=== PATIENT | female | born 1960 | race Caucasian/White ===

== ENCOUNTER 2017-05-17 09:27 | Observation (INO) | payer BC ==
[~2017-05-17] VITALS: Ht 152.4 cm; Wt 87.8 kg
[2017-05-17 10:20] LABS: HEMATOCRIT 44.6 % (36.0-46.0); MCH 29.2 PG (29.0-34.0); MCHC 32.5 G/DL (30.0-36.0); MCV 89.9 FL (83-99); MEAN PLAT.VOLUME 8.9 uM^3 (9.5-12.4); PLATELET COUNT 370 K/uL (156-360); RBC DIS.WIDTH-CV 13.1 % (11.8-14.6); RBC DIS.WIDTH-SD 42.9 % (39-53); RED BLOOD COUNT 4.96 M/uL (3.80-5.20); WHITE BLOOD COUNT 8.7 K/uL (4.1-10.2)
[2017-05-17 10:28] LABS: POINT-OF-CARE METER ID UU13113747
[2017-05-17 10:34] LABS: CHLORIDE 105 mEq/L (99-109); INTER. NORMALIZED RATIO 0.9; POTASSIUM 4.6 mEq/L (3.7-5.4); PROTHROMBIN TIME 10.2 SEC (10.2-12.9); SODIUM 139 mEq/L (136-147)
[2017-05-17 10:35] LABS: GLUCOSE 125 mg/dL (70-99)
[2017-05-17 10:36] LABS: PTT 29.6 SEC (25-37)
[2017-05-17 10:37] LABS: ANION GAP 13 MEQ/L (2-14)
[2017-05-17 10:39] LABS: GFR ESTIMATE (CALCULATED) > 59 mL/min/
[2017-05-17 10:40] LABS: TROP-I INTERPRETATION NEGATIVE; TROPONIN-I < 0.01 ng/mL (0.0-0.30); UREA NITROGEN (BUN) 14 mg/dL (9-23)
[2017-05-17 13:06] VITALS: BP 138/89
[2017-05-17 16:32] LABS: TROP-I INTERPRETATION NEGATIVE; TROPONIN-I < 0.01 ng/mL (0.0-0.30)
[2017-05-17 20:00] VITALS: BP 147/77
[2017-05-17 22:11] LABS: TROP-I INTERPRETATION NEGATIVE; TROPONIN-I 0.03 ng/mL (0.0-0.30)
[2017-05-17 23:17] VITALS: BP 118/68
[2017-05-18 04:24] VITALS: BP 111/62
[2017-05-18 05:56] LABS: HDL CHOLESTEROL 53 MG/DL (Desirable>=50); LDL CHOLESTEROL 120 mg/dL (Desirable<100); NON-HDL CHOLESTEROL 176 mg/dL (Desirable<160); TOTAL CHOLESTEROL 229 mg/dL (Desirable<200); TRIGLYCERIDES 282 MG/DL (Normal: <150)
[2017-05-18 06:22] LABS: Estimated Average Glucose 120 mg/dL (70-123); HEMOGLOBIN A1c (GLYCOHEMOGLOB) 5.8 % HGB (Below 5.7)
[2017-05-18 07:50] VITALS: BP 129/69
[2017-05-18] MEDS ORDERED: ASPIR-LOW81 MG PO (10:33)
== END 2017-05-18 11:40 | disposition home or self-care (01) ==
LOC: EME 09:27 → EDOF 11:40 → ENRESERV 11:41 → 5WEST 13:06
PROVIDERS: Emergency Medicine; Internal Medicine
DX: H53.8 Other visual disturbances (principal); Z86.73 Personal history of transient ischemic attack (TIA), and cerebral infarction without residual deficits; I10 Essential (primary) hypertension; E78.5 Hyperlipidemia, unspecified; G47.33 Obstructive sleep apnea (adult) (pediatric); F17.210 Nicotine dependence, cigarettes, uncomplicated; R73.03 Prediabetes; E66.9 Obesity, unspecified; Z68.37 Body mass index [BMI] 37.0-37.9, adult; Z98.890 Other specified postprocedural states; Z79.82 Long term (current) use of aspirin; Z83.3 Family history of diabetes mellitus
CPT/HCPCS: 70450; 70551; 71020; 80048; 80061; 82948; 83036; 84484; 85027; 85610; 85730; 93005; 93880; 99281; 99285; G0378

== ENCOUNTER 2018-01-01 09:10 | Emergency (ER) | payer BC ==
[~2018-01-01] VITALS: Ht 152.4 cm; Wt 95.0 kg
[~2018-01-01 09:10] MED LIST: ASPIR-LOW81 MG PO; BENADRYL ALLERG25 MG PO; BENICAR20 MG PO; EFFEXOR XR150 MG PO; LIPITOR80 MG PO; LO-DOSE ASPIRIN81 M1 PO; TIZANIDINE HCL4 MG PO; TUMS500 MG PO; TYLENOL REGULA325 MG PO
[2018-01-01 10:49] LABS: HEMATOCRIT 42.3 % (36.0-46.0); HEMOGLOBIN 14.4 G/DL (11.9-15.5); MCV 91.2 FL (83-99); PLATELET COUNT 370 K/uL (156-360); RBC DIS.WIDTH-SD 46.8 % (39-53); RED BLOOD COUNT 4.64 M/uL (3.80-5.20); WHITE BLOOD COUNT 9.3 K/uL (4.1-10.2)
[2018-01-01 10:58] LABS: CHLORIDE 99 mEq/L (99-109); POTASSIUM 4.7 mEq/L (3.7-5.4); SODIUM 140 mEq/L (136-147)
[2018-01-01 11:00] LABS: GLUCOSE 107 mg/dL (70-99)
[2018-01-01 11:04] LABS: CREATININE 1.2 mg/dL (0.6-1.3); GFR ESTIMATE (CALCULATED) 49 mL/min/
[2018-01-01 11:05] LABS: UREA NITROGEN (BUN) 15 mg/dL (9-23)
[2018-01-01 15:00] VITALS: BP 146/100
== END 2018-01-01 15:00 | disposition home or self-care (01) ==
LOC: EME 09:10
PROVIDERS: Family Medicine
DX: R20.0 Anesthesia of skin (principal); R53.1 Weakness; Z98.1 Arthrodesis status; I10 Essential (primary) hypertension; K21.9 Gastro-esophageal reflux disease without esophagitis; G47.30 Sleep apnea, unspecified; F41.9 Anxiety disorder, unspecified; F32.9 Major depressive disorder, single episode, unspecified; Z87.891 Personal history of nicotine dependence; Z86.73 Personal history of transient ischemic attack (TIA), and cerebral infarction without residual deficits; Z86.79 Personal history of other diseases of the circulatory system; Z90.49 Acquired absence of other specified parts of digestive tract
CPT/HCPCS: 72148; 72156; 80048; 85027; 99281; 99285

== ENCOUNTER → 2018-01-22 | Outpatient (CLI) | payer BC ==
[2018-01-22 16:56] LABS: CSF PROTEIN 68 mg/dL (15-45)
[2018-01-22 16:59] LABS: APPEARANCE CLEAR/COLORLESS; CSF TUBE NUMBER TUBE #4
[2018-01-22 17:00] LABS: RED CELL COUNT 2 /MM^3 (0-1); WHITE CELL COUNT 1 /MM^3 (0-5)
[2018-01-22 17:02] LABS: GLUCOSE, CSF 67 mg/dL (40-80)
[2018-01-22 17:05] LABS: CSF EOSINOPHILS ND % (0-25); MONONUCLEAR WBC'S ND % (50-90); POLYNUCLEAR WBC'S ND % (0-3)
[2018-01-24 14:37] LABS: HSV CSF Spec Source CSF (())
== END | disposition home or self-care (01) ==
LOC: RAD 14:27
PROVIDERS: Physician Assistant
PROC: 009U3ZZ Drainage of Spinal Canal, Percutaneous Approach (ICD-10-PCS; principal; 2018-01-22)
DX: R90.82 White matter disease, unspecified (principal)
CPT/HCPCS: 62270; 77003; 82040 90; 82042 90; 82164 90; 82784 90; 82945; 83916 90; 84157; 86592 90; 86617 90; 86618 90; 87070; 87205; 87529 90; 89051